=== PATIENT | male | born 1990 | race Caucasian/White ===

== ENCOUNTER 2022-07-22 18:26 | Emergency (ER) | payer SELFPAY ==
[2022-07-22 18:30] VITALS: BP 130/84; PULSE 70; RESP 18; TEMP 97.3; BMI 29.5
[2022-07-22] MEDS ORDERED: SODIUM CHLORIDE 0.9% 500 ML INFUS.BAG IV ONE (20:09)
[2022-07-22] MEDS ORDERED: KETOROLAC TROMETHAMINE 30 MG/1 ML VIAL IVPUSH ONE (20:09)
[2022-07-22] MEDS ORDERED: CYCLOBENZAPRINE HCL 10 MG TABLET (FP) PO ONE (20:09)
[2022-07-22] MEDS ORDERED: KETOROLAC TROMETHAMINE 30 MG/1 ML VIAL ONE (20:25)
[2022-07-22] MEDS ORDERED: CYCLOBENZAPRINE HCL 10 MG TABLET (FP) ONE (20:25)
[2022-07-22 20:27] LABS: BASO % 0.6 % (0-2.0); EOS % 0.9 % (0-4.5); HEMATOCRIT 46.8 % (35.4-49); HEMOGLOBIN 16.2 GM/dL (11.7-16.9); LYMPH % 33.5 % (8-40); MCH 31.8 pg (25.7-33.7); MCHC 34.6 g/dl (32.0-35.9); MEAN CELL VOLUME 92.1 fl (80-96); MONO % 10.8 % (3.8-10.2); NEUT % 54.2 % (42.8-82.8); PLATELET COUNT 332 10^3/uL (134-434); RBC 5.08 M/mm3 (4.00-5.60); RDW 13.3 % (11.9-15.9); WHITE BLOOD COUNT 6.6 K/mm3 (4.0-10.0)
[2022-07-22 20:46] LABS: ALBUMIN 4.4 g/dl (3.4-5.0); BLOOD UREA NITROGEN 17.6 mg/dL (7-18); MAGNESIUM 2.5 mg/dL (1.8-2.4)
[2022-07-22 20:47] LABS: INR 1.11 (0.83-1.09); PROTHROMBIN TIME (PATIENT) 12.8 SEC (9.7-13.0)
[2022-07-22 20:49] LABS: CREATININE 1.1 mg/dL (0.55-1.3)
[2022-07-22 20:50] LABS: TOT PROT 7.7 g/dl (6.4-8.2)
[2022-07-22 20:51] LABS: BILIRUBIN,TOTAL 0.5 mg/dL (0.2-1)
== END 2022-07-22 23:08 | disposition home or self-care (01) ==
LOC: JERFT 18:26 → JER 18:26 → JERFT 23:08
PROC: 3E0233Z Introduction of Anti-inflammatory into Muscle, Percutaneous Approach (ICD-10-PCS; principal; 2022-07-22)
DX: M79.602 Pain in left arm (principal); M25.512 Pain in left shoulder
CPT/HCPCS: 36415; 70450-TC; 72125-TC; 73030-TC-LT-FY; 80053; 82150; 83690; 83735; 85025; 85610; 99285-25

== ENCOUNTER 2024-05-04 13:20 | Inpatient (IN) | payer SELFPAY ==
[2024-05-04 13:32] VITALS: TEMP 97.1; BMI 30.8
[2024-05-04] MEDS: SODIUM CHLORIDE 1,000 ML IV SCH (13:58)
[2024-05-04 14:07] LABS: BASO % 0.7 % (0-2.0); EOS % 1.2 % (0-4.5); HEMATOCRIT 45.7 % (35.4-49); HEMOGLOBIN 15.6 GM/dL (11.7-16.9); LYMPH % 28.9 % (8-40); MCHC 34.1 g/dl (32.0-35.9); MEAN CELL VOLUME 93.9 fl (80-96); MEAN PLT VOLUME 7.5 fl (7.5-11.1); MONO % 7.9 % (3.8-10.2); NEUT % 61.3 % (42.8-82.8); PLATELET COUNT 324 10^3/uL (134-434); RBC 4.87 M/mm3 (4.00-5.60); RDW 13.6 % (11.9-15.9); WHITE BLOOD COUNT 10.3 K/mm3 (4.0-10.0)
[2024-05-04 14:19] LABS: INR 0.92 (0.83-1.09); PROTHROMBIN TIME (PATIENT) 10.4 SEC (9.7-13.0)
[2024-05-04 14:29] LABS: POTASSIUM 3.8 mmol/L (3.5-5.1)
[2024-05-04 14:30] LABS: CALCIUM 9.4 mg/dL (8.5-10.1)
[2024-05-04 14:31] LABS: ALBUMIN 4.3 g/dl (3.4-5.0)
[2024-05-04 14:32] LABS: BLOOD UREA NITROGEN 18.5 mg/dL (7-18)
[2024-05-04 14:34] LABS: CREATININE 1.3 mg/dL (0.55-1.3)
[2024-05-04 14:36] LABS: TOT PROT 7.7 g/dl (6.4-8.2)
[2024-05-04 14:37] LABS: BILIRUBIN,TOTAL 0.5 mg/dL (0.2-1)
[2024-05-04] MEDS ORDERED: ACETAMINOPHEN INJECTION 100 ML IVPB ONE (14:54)
[2024-05-04] MEDS: ACETAMINOPHEN 1000 MG/100 ML BAG IVPB ONE (14:56)
[2024-05-04] MEDS ORDERED: METOCLOPRAMIDE HCL INJECTION 10 MG/2 ML VIAL ONE (16:15)
[2024-05-04] MEDS: METOCLOPRAMIDE HCL INJECTION 10 MG/2 ML VIAL IVPUSH ONE (16:24)
[2024-05-04 17:56] VITALS: BP 130/84; PULSE 50; RESP 16
== END 2024-05-04 18:06 | disposition short-term general hospital (02) | DRG 44 ==
LOC: JER 13:20 → JERBED 14:43
PROVIDERS: ADMIT Internal Medicine; ATTEND Internal Medicine
DX: I61.9 Nontraumatic intracerebral hemorrhage, unspecified (principal); R29.703 NIHSS score 3; H53.8 Other visual disturbances; F12.90 Cannabis use, unspecified, uncomplicated; R27.0 Ataxia, unspecified; G93.5 Compression of brain
CPT/HCPCS: 36415; 70450-TC; 70553-TC; 80053; 80061; 82550; 82553; 82962; 83036; 84484; 85025; 85610; 85651; 85730; 86850; 86900; 86901; 93005; 93010; 99291; J0131